=== PATIENT | female | born 1960 | race Caucasian/White ===

== ENCOUNTER 2017-07-30 10:08 | Emergency (ER) | payer MEDICAID, OTHER ==
[~2017-07-30] VITALS: Ht 165.1 cm; Wt 81.6 kg
[~2017-07-30 10:08] MED LIST: DICL50TA PO; DULO20CA PO; HYDR-548 PO; TRAM50TA2 PO
[2017-07-30 10:11] VITALS: BP 140/100
== END 2017-07-30 10:30 | disposition home or self-care (01) ==
LOC: ER 10:09
DX: M54.12 Radiculopathy, cervical region (principal)
CPT/HCPCS: A4606; Z7502; Z7610

== ENCOUNTER 2023-07-14 11:27 | Emergency (ER) | payer OTHER ==
[~2023-07-14] VITALS: Ht 177.8 cm; Wt 102.5 kg
[~2023-07-14 11:27] MED LIST changes: +HYDR-4354 PO; -HYDR-548 PO
[2023-07-14 11:39] VITALS: TEMP 98.6
[2023-07-14] MEDS ORDERED: AMOX-430 PO (12:07)
[2023-07-14] MEDS ORDERED: DOXY100C2 PO (12:07)
[2023-07-14] MEDS ORDERED: PRED20TA PO (12:07)
[2023-07-14] MEDS ORDERED: ALBU18HF2 INH (12:07)
[2023-07-14 12:15] LABS: BASOPHILS # (AUTO) 0.1 K/uL (0.0-0.2); BASOPHILS % (AUTO) 0.9 % (0.0-2.0); EOSINOPHILS # (AUTO) 0.1 K/uL (0.0-0.7); EOSINOPHILS % (AUTO) 1.1 % (0.0-6.0); HEMATOCRIT 38 % (33-45); HEMOGLOBIN 12.9 g/dL (11.5-14.8); LYMPHOCYTES # (AUTO) 1.7 K/uL (0.8-4.8); LYMPHOCYTES % (AUTO) 24.9 % (20.0-44.0); MEAN CORPUSCULAR HEMOGLOBIN 29 PG (26.0-33.0); MEAN CORPUSCULAR HGB CONC 34 g/dl (31.0-36.0); MEAN CORPUSCULAR VOLUME 87 fL (82-100); MONOCYTES # (AUTO) 0.7 K/uL (0.1-1.30); MONOCYTES % (AUTO) 9.7 % (2.0-12.0); NEUTROPHILS # (AUTO) 4.3 K/uL (1.8-8.9); NEUTROPHILS % (AUTO) 63.4 % (43.0-81.0); PLATELET COUNT (AUTO) 289 K/uL (150-450); RED BLOOD CELL COUNT(AUTO) 4.41 MIL/uL (4.0-5.2); RED CELL DISTRIBUTION WIDTH 13.3 % (11.5-15.0); WHITE BLOOD COUNT (AUTO) 6.7 K/uL (4.3-11.0)
[2023-07-14 12:16] LABS: CALCIUM, SERUM 8.3 mg/dL (8.5-10.1); CARBON DIOXIDE 25 mmol/L (21-32); CHLORIDE 109 mmol/L (98-107); GLUCOSE 111 mg/dL (74-106); POTASSIUM 3.6 mmol/L (3.5-5.1); SODIUM SERUM 140 mmol/L (136-145); UREA NITROGEN, BLOOD 13 mg/dL (7-18)
[2023-07-14] MEDS ORDERED: predniSONE 20 MG TABLET ONE (12:40)
[2023-07-14] MEDS: predniSONE 20 MG TABLET PO ONE (12:40)
[2023-07-14] MEDS ORDERED: ALBUTEROL FS 2.5 MG/3 ML VIAL.NEB ONE (13:09)
[2023-07-14] MEDS ORDERED: IPRATROPIUM NEB FS 0.5 MG/2.5 ML AMPUL.NEB ONE (13:09)
[2023-07-14] MEDS: IPRATROPIUM NEB FS 0.5 MG/2.5 ML AMPUL.NEB NEB ONE (13:15)
[2023-07-14] MEDS: ALBUTEROL FS 2.5 MG/3 ML VIAL.NEB CONTNEB ONE (13:15)
[2023-07-14 13:16] VITALS: O2SAT 95
[2023-07-14 13:50] VITALS: O2SAT 100
[2023-07-14 14:00] VITALS: BP 128/53; O2SAT 98
== END 2023-07-14 14:01 | disposition home or self-care (01) ==
LOC: ER 11:31
DX: J20.9 Acute bronchitis, unspecified (principal); J06.9 Acute upper respiratory infection, unspecified; R05.9 Cough, unspecified; R09.81 Nasal congestion; G89.29 Other chronic pain; Z79.899 Other long term (current) drug therapy
CPT/HCPCS: 99285; 71045; 93005; 85025; 80048; 36415; 84484; 94644; J7512